=== PATIENT | male | born 1970 | race Caucasian/White ===

== ENCOUNTER 2017-07-27 19:18 | Emergency (ER) | payer BC ==
[2017-07-27 19:32] VITALS: BP 137/92
--- NOTE | 2017-07-27 20:29 | ER Document Report ---
HPI - HPI Patient complains to provider of: right shoulder pain Pain Level: 4 Context: Patient is a 46-year-old male presents emergency department complaining of right shoulder pain that has been chronic for 3 years but worse over the past couple weeks. 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 He states that he has had pain in the back of his skull and his right shoulder along his back. He states it gets worse with certain positions and at the end of the workday. States that he is not taking anything [id number] for it has not followed up with a primary care provider regarding this. Denies any trauma. - REPRODUCTIVE Reproductive: DENIES: : Past Medical History - Social History Smoking Status: Current Every Day Smoker Family History: None Pulmonary Medical History: Reports: Hx Bronchitis, Hx Pneumonia - Immunizations Immunizations up to date: Yes Hx Diphtheria, Pertussis, Tetanus Vaccination: No Vertical Provider Document - CONSTITUTIONAL Agree With Documented VS: Yes Notes: PHYSICAL EXAM GENERAL: Alert, interacts well. EXTREMITIES: Moves all 4 extremities spontaneously. Pain reproducible to palpation of the right shoulder along the right trapezius. Shoulder nontender full range of motion, elbow full range of motion nontender. 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 No cyanosis. NEUROLOGICAL: Alert and oriented x4. Normal speech. PSYCH: Normal affect, normal mood. SKIN: Warm, dry, normal turgor. No rashes or lesions noted. - INFECTION CONTROL TRAVEL OUTSIDE OF THE [place] IN LAST 30 DAYS: No - RESPIRATORY O2 Sat by Pulse Oximetry: 100 Course - Re-evaluation Re-evalutation: 07/27/17 20:29 Patient is a 46-year-old male who is hemodynamically stable, no acute distress and afebrile. Presentation is consistent with overuse muscle irritation of the right trapezius likely due to patient's occupation as well as posture. No evidence of a septic joint, gout flare, dislocation Vitals wnl. At this time, I do not see an indication for labs or further imaging. Will discharge with conservative measures, return precautions, and follow-up recommendations. - Vital Signs Vital signs: Temp Pulse Resp BP Pulse Ox 98.5 F 67 16 137/92 H 100 07/27/17 19:29 07/27/17 19:29 07/27/17 19:29 07/27/17 19:29 07/27/17 19:29 Discharge - Discharge Clinical Impression: Shoulder pain Qualifiers: Chronicity: chronic Laterality: right Qualified Code(s): M25.511 - Pain in right shoulder; G89.29 - Other chronic pain; G89.29 - Other chronic pain Condition: Good Disposition: HOME, SELF-CARE Instructions: Muscle Strain ([facility]), Exercise Program for the Shoulder ([facility]), Use of [id number]-Fmybhlt Ibuprofen ([facility]) Prescriptions: Ibuprofen [Motrin 800 mg Tablet] 800 mg PO Q8H PRN #30 tab PRN Reason: Referrals: KIRSTIE GOMEZ MD [ACTIVE STAFF] - Follow up in 1 week
[2017-07-27] MEDS ORDERED: KETOROLAC TROMETHAMINE INJ/PF 30 MG/1 ML SDV IM ONE (20:35)
== END 2017-07-27 21:04 | disposition home or self-care (01) ==
LOC: ER 19:18
DX: G89.29 Other chronic pain (principal); M25.511 Pain in right shoulder; F17.200 Nicotine dependence, unspecified, uncomplicated
CPT/HCPCS: 99283; 96372; J1885

== ENCOUNTER 2018-05-04 17:19 | Emergency (ER) | payer BC, OTHER ==
[2018-05-04] MEDS ORDERED: ASPIRIN 325 MG TABLET PO ONE (17:45)
--- NOTE | 2018-05-04 17:46 | EKG REPORT ---
SEVERITY:- NORMAL ECG - SINUS RHYTHM : Confirmed by: Geovany Ford MD 04-May-2018 17:45:38
--- NOTE | 2018-05-04 17:49 | ER Document Report ---
ED Medical Screen (RME) - General Chief Complaint: Chest Pain Stated Complaint: CHEST PAIN/SHORT OF BREATH Time Seen by Provider: 05/04/18 17:45 Mode of Arrival: Ambulatory Information source: Patient TRAVEL OUTSIDE OF THE [place] IN LAST 30 DAYS: No - HPI Patient complains to provider of: cp Onset: Yesterday - pt with intermittent sscp since yesterday. Has had some SOB for the past week - Related Data Allergies/Adverse Reactions: No Known Allergies Allergy (Verified 07/27/17 19:32) Past Medical History Pulmonary Medical History: Reports: Hx Bronchitis, Hx Pneumonia Renal/ Medical History: Denies: Hx Peritoneal Dialysis - Immunizations Immunizations up to date: Yes Hx Diphtheria, Pertussis, Tetanus Vaccination: No Physical Exam - Vital signs Vitals: Temp Pulse Resp BP Pulse Ox 98.7 F 85 16 132/87 H 100 05/04/18 17:32 05/04/18 17:32 05/04/18 17:32 05/04/18 17:32 05/04/18 17:32 Course - Vital Signs Vital signs: Temp Pulse Resp BP Pulse Ox 98.7 F 85 16 132/87 H 100 05/04/18 17:32 05/04/18 17:32 05/04/18 17:32 05/04/18 17:32 05/04/18 17:32
[2018-05-04 18:06] LABS: ABSOLUTE EOSINOPHILS # (AUTO) 0.3 10^3/uL (0.0-0.6); ABSOLUTE LYMPHOCYTES (AUTO) 2.8 10^3/uL (0.5-4.7); ABSOLUTE MONOCYTES (AUTO) 0.7 10^3/uL (0.1-1.4); BASOPHILS % (AUTO) 0.4 % (0-2); HEMATOCRIT 47.5 % (37.9-51.0); HEMOGLOBIN 16.1 g/dL (13.5-17.0); LYMPHOCYTES % (AUTO) 31.6 % (13-45); MEAN CORPUSCULAR HEMOGLOBIN 30.6 pg (27.0-33.4); MEAN CORPUSCULAR HGB CONC 33.9 g/dL (32.0-36.0); MEAN CORPUSCULAR VOLUME 90 fl (80-97); MONOCYTES % (AUTO) 8.3 % (3-13); PLATELET COUNT 207 10^3/uL (150-450); RED BLOOD COUNT 5.27 10^6/uL (4.35-5.55); RED CELL DISTRIBUTION WIDTH 14.1 % (11.5-14.0); SEGMENTED NEUTROPHILS % (AUTO) 56.7 % (42-78); TOTAL CELLS COUNTED % (AUTO) 100 %; WHITE BLOOD COUNT 8.9 10^3/uL (4.0-10.5)
[2018-05-04 18:32] LABS: ALANINE AMINOTRANSFERASE 112 U/L (21-72); ALBUMIN 4.4 g/dL (3.5-5.0); ALKALINE PHOSPHATASE 80 U/L (38-126); ANION GAP 12 (5-19); ASPARTATE AMINO TRANSFERASE 71 U/L (17-59); BILIRUBIN,DIRECT 0.4 mg/dL (0.0-0.4); BILIRUBIN,TOTAL 0.5 mg/dL (0.2-1.3); BLOOD UREA NITROGEN 21 mg/dL (7-20); CALCIUM 9.5 mg/dL (8.4-10.2); CARBON DIOXIDE 28 mmol/L (22-30); CHLORIDE 102 mmol/L (98-107); CREATINE KINASE 123 U/L (55-170); GLUCOSE 86 mg/dL (75-110); POTASSIUM 4.7 mmol/L (3.6-5.0); SODIUM 141.9 mmol/L (137-145); TOTAL PROTEIN 7.6 g/dL (6.3-8.2)
[2018-05-04 18:41] LABS: CREATINE KINASE MB 0.57 ng/mL (<4.55)
[2018-05-04 18:44] LABS: TROPONIN I < 0.012 ng/mL
--- NOTE | 2018-05-04 18:49 | RADIOLOGY REPORT (SQ) ---
EXAM DESCRIPTION: CHEST 2 VIEWS COMPLETED DATE/TIME: 05/04/2018 6:36 pm REASON FOR STUDY: Chest pain COMPARISON: 03/18/2018 and earlier EXAM PARAMETERS: NUMBER OF VIEWS: two views TECHNIQUE: Digital Frontal and Lateral radiographic views of the chest acquired. RADIATION DOSE: NA LIMITATIONS: none FINDINGS: LUNGS AND PLEURA: Skin fold over the inferior right hemithorax. No focal consolidation, p leural effusion, or pneumothorax. Chronic blunting of the costophrenic angles per Lungs are hyperluc ent with flattening of the hemidiaphragms. MEDIASTINUM AND HILAR STRUCTURES: No masses or contour abnormalities. HEART AND VASCULAR STRUCTURES: Heart normal size. No evidence for failure. BONES: No acute findings. HARDWARE: None in the chest. OTHER: No other significant finding. IMPRESSION: 1. No acute cardiopulmonary process 2. Sequela of COPD. TECHNICAL DOCUMENTATION: JOB ID: [id number] [employer]- All Rights Reserved Reading location - IP/workstation name: [email or web address]
[2018-05-04] MEDS ORDERED: PREDNISONE 20 MG TABLET PO ONE (19:51)
[2018-05-04] MEDS ORDERED: IPRATROPIUM/ALBUTEROL 0.5-2.5 MG/3 ML AMPUL NEB ONE (19:52)
[2018-05-04] MEDS ORDERED: ALBUTEROL SULFATE HFA (90 MCG/PUFF) 200 PUFF/8.5 GM MDI IH ONE (19:52)
--- NOTE | 2018-05-04 19:58 | ER Document Report ---
ED General - General Chief Complaint: Chest Pain Stated Complaint: CHEST PAIN/SHORT OF BREATH Time Seen by Provider: 05/04/18 17:45 Mode of Arrival: Ambulatory Notes: Patient is a 47-year-old male with a past medical history of COPD, continues to smoke who presents with 3-4 days of coughing, increased shortness of breath and feeling fatigued. Patient states that the symptoms started gradually and have gotten progressively worse since that time. He has not trying to improve his symptoms. He notes that exerting himself or smoking worsens his symptoms. He does not have a general doctor. He denies fever or constitutional symptoms. He does note that he has had a intermittent, stabbing, aching pain to the left side of his lower ribs vertically when he coughs or moves. TRAVEL OUTSIDE OF THE [place] IN LAST 30 DAYS: No - Related Data Allergies/Adverse Reactions: No Known Allergies Allergy (Verified 07/27/17 19:32) Past Medical History - General Information source: Patient - Social History Smoking Status: Current Every Day Smoker Cigarette use (# per day): Yes - 1 pack/day Smoking Education Provided: Yes - Smoking cessation counseling was provided for 4 minutes at the bedside Frequency of alcohol use: Occasional Drug Abuse: None Lives with: Spouse/Significant other Family History: Reviewed & Not Pertinent Patient has suicidal ideation: No Patient has homicidal ideation: No Pulmonary Medical History: Reports: Hx Bronchitis, Hx Pneumonia Renal/ Medical History: Denies: Hx Peritoneal Dialysis - Immunizations Immunizations up to date: Yes Hx Diphtheria, Pertussis, Tetanus Vaccination: No Review of Systems - Review of Systems Notes: Constitutional: Negative for fever. HENT: Negative for sore throat. Eyes: Negative for visual changes. Cardiovascular: Negative for chest pain. Respiratory: Positive for cough and shortness of breath Gastrointestinal: Negative for abdominal pain, vomiting or diarrhea. Genitourinary: Negative for dysuria. Musculoskeletal: Negative for back pain. Skin: Negative for rash. Neurological: Negative for headaches, weakness or numbness. 10 point ROS negative except as marked above and in HPI. Physical Exam - Vital signs Vitals: Temp Pulse Resp BP Pulse Ox 98.7 F 85 16 132/87 H 100 05/04/18 17:32 05/04/18 17:32 05/04/18 17:32 05/04/18 17:32 05/04/18 17:32 Interpretation: Normal Notes: PHYSICAL EXAMINATION: GENERAL: Well-appearing, well-nourished and in no acute distress. HEAD: Atraumatic, normocephalic. EYES: Pupils equal round and reactive to light, extraocular movements intact, sclera anicteric, conjunctiva are normal. ENT: nares patent, oropharynx clear without exudates. Moist mucous membranes. NECK: Normal range of motion, supple without lymphadenopathy LUNGS: Faint expiratory wheezing in all lung prieto. No increased work of breathing or distress. HEART: Regular rate and rhythm without murmurs ABDOMEN: Soft, nontender, normoactive bowel sounds. No guarding, no rebound. No masses appreciated. EXTREMITIES: Normal range of motion, no pitting or edema. No cyanosis. NEUROLOGICAL: No focal neurological deficits. Moves all extremities spontaneously and on command. PSYCH: Normal mood, normal affect. SKIN: Warm, Dry, normal turgor, no rashes or lesions noted. Course - Re-evaluation Re-evalutation: 05/04/18 19:53 Patient presents with a mild exacerbation of their baseline COPD. Mild wheezing at time of presentation but vitals do not show significant hypoxemia or tachypnea. No retractions. Patient did clinically improve after receiving nebulizers here in the emergency department. Chest x-ray without evidence of an acute pneumonia. Laboratories do not show acute kidney injury or significant leukocytosis. Patient able to ambulate without any respiratory distress. Based on patient's overall reassuring assessment, I believe they are stable for outpatient management with steroids. Patient has been provided an albuterol inhaler with a spacer for home. Patient did report some chest discomfort with coughing which appears to be muscular skeletal in origin as it is entirely between the rib spaces on the left side and is reproducible on palpation. Has been ongoing for several days. No indication for serial cardiac markers. I do not suspect an acute alternative pathology at this time based on history and exam including acute pulmonary embolus, ACS, pneumothorax, or aortic dissection. At this time will discharge with return precautions and follow-up recommendations. Verbal discharge instructions given a the bedside and opportunity for questions given. Medication warnings reviewed. Patient is in agreement with this plan and has verbalized understanding of return precautions and the need for primary care follow-up in the next 24-72 hours. - Vital Signs Vital signs: Temp Pulse Resp BP Pulse Ox 97 F L 85 18 116/80 97 05/04/18 21:01 05/04/18 17:32 05/04/18 21:01 05/04/18 21:01 05/04/18 21:01 - Laboratory Result Diagrams: 05/04/18 17:57 05/04/18 17:57 Laboratory results interpreted by me: 05/04/18 05/04/18 17:57 17:57 RDW 14.1 H BUN 21 H AST 71 H ALT 112 H - Diagnostic Test Radiology reviewed: Image reviewed, Reports reviewed Radiology results interpreted by me: 05/04/18 19:54 Chest x-ray: Findings consistent with COPD - EKG Interpretation by Me Additional EKG results interpreted by me: 05/04/18 19:58 Rhythm[address] Rate 56[address] No ST elevations or depressions. QTC is 398. Discharge - Discharge Clinical Impression: COPD exacerbation, Chest discomfort, Persistent cough Condition: Good Disposition: HOME, SELF-CARE Additional Instructions: You were seen for a COPD exacerbation. Your symptoms improved with treatment here in the emergency department. However, it is very important that you return to the emergency department immediately if you began to have worsening difficulty breathing that does not respond to your normal home nebulizers. You are also being sent home on a five-day course of steroids that you should start taking tomorrow. Please also follow closely with your primary care physician. You should return to emergency department if you develop fever greater than 101 , persistent cough, persistent vomiting, pass out, or any other symptoms that are concerning to you. Prescriptions: Prednisone [Deltasone 20 mg Tablet] 2 tab PO DAILY 5 Days tablet
[2018-05-04 21:11] VITALS: BP 116/80
== END 2018-05-04 21:11 | disposition home or self-care (01) ==
LOC: ER 17:19
DX: J44.1 Chronic obstructive pulmonary disease with (acute) exacerbation (principal); R05 Cough; R06.02 Shortness of breath; R53.83 Other fatigue; R07.81 Pleurodynia; F17.210 Nicotine dependence, cigarettes, uncomplicated; Z71.6 Tobacco abuse counseling; Z87.01 Personal history of pneumonia (recurrent)
CPT/HCPCS: 93005; 99406; 94640; 99285; 36415; 82553; 82550; 85025; 80053; 84484; 71046; 93010; J7512; J3490; J7620

== ENCOUNTER 2019-08-11 14:46 | Emergency (ER) | payer OTHER ==
[2019-08-11] MEDS ORDERED: ACETAMINOPHEN 325 MG TABLET PO ONE (16:01)
[2019-08-11] MEDS ORDERED: TETRACAINE HCL 0.5% OPH SOLN 4 ML OS ONE (16:02)
--- NOTE | 2019-08-11 16:04 | ER Document Report ---
ED Medical Screen (RME) - General Chief Complaint: Foreign Body in Eye Stated Complaint: FOREIGN BODY IN EYE LEFT Time Seen by Provider: 08/11/19 15:53 Notes: Patient is a 48-year-old male presents emergency department with a chief complaint of foreign body in his eye. Patient reports around 130 he was cutting steel, states he did have his protective goggles on but that a piece of steel went into his eye. Patient reports he is had a lot of eye redness and irritation with clear tearing since then. Patient reports that he feels like there is something stuck there. Patient reports he attempted to irrigate with a bottle of water. Patient reports blurred vision. TRAVEL OUTSIDE OF THE [place] IN LAST 30 DAYS: No - Related Data Allergies/Adverse Reactions: No Known Allergies Allergy (Verified 08/11/19 15:55) Home Medications: adderall, olanzapine Past Medical History - Social History Chew tobacco use (# tins/day): No Frequency of alcohol use: None Drug Abuse: None Pulmonary Medical History: Reports: Hx Bronchitis, Hx Pneumonia Renal/ Medical History: Denies: Hx Peritoneal Dialysis - Immunizations Immunizations up to date: Yes Hx Diphtheria, Pertussis, Tetanus Vaccination: No Physical Exam - Vital signs Vitals: Temp Pulse Resp BP Pulse Ox 98.0 F 73 16 130/69 H 97 08/11/19 15:37 08/11/19 15:37 08/11/19 15:37 08/11/19 15:37 08/11/19 15:37 - HEENT Head: Normocephalic Eyes: Tears Conjunctiva: Injected Cornea: Other - There is a possible foreign body noted at the 6 o'clock position on the cornea. Extraocular movements intact: Yes Eyelashes: Normal Pupils: PERRL Course - Re-evaluation Re-evalutation: 08/11/19 16:04 Patient require a thorough eye exam once placed in a private room. I have ordered visual acuity, Tylenol, tetracaine in the eye box for the provider in the back. I have greeted and performed a rapid initial assessment of this patient. A comprehensive ED assessment and evaluation of the patient, analysis of test results and completion of the medical decision making process will be conducted by additional ED providers. - Vital Signs Vital signs: Temp Pulse Resp BP Pulse Ox 98.0 F 73 16 130/69 H 97 08/11/19 15:37 08/11/19 15:37 08/11/19 15:37 08/11/19 15:37 08/11/19 15:37
[2019-08-11] MEDS ORDERED: DIPH/PERTUSS(ACELL)/TETANUS VAC/PF 0.5 ML SYR (>=10YO) IM ONE (18:05)
--- NOTE | 2019-08-11 18:05 | ER Document Report ---
ED Foreign Body - General Chief Complaint: Foreign Body in Eye Stated Complaint: FOREIGN BODY IN EYE LEFT Time Seen by Provider: 08/11/19 15:53 Primary Care Provider: LORENA CHANG MD [ACTIVE STAFF] - Follow up tomorrow Notes: Patient is a 48-year-old male who presents to the emergency department with a chief complaint of left eye pain. 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 He was wearing safety glasses. States that he has had this done before and has had the wound care physician take the metal out. Admits to some blurriness. Patient currently takes Adderall. TRAVEL OUTSIDE OF THE [place] IN LAST 30 DAYS: No - Related Data Allergies/Adverse Reactions: No Known Allergies Allergy (Verified 08/11/19 15:55) Home Medications: adderall, olanzapine Past Medical History - Social History Smoking Status: Current Every Day Smoker Chew tobacco use (# tins/day): No Frequency of alcohol use: None Drug Abuse: None Family History: Reviewed & Not Pertinent Patient has suicidal ideation: No Patient has homicidal ideation: No Pulmonary Medical History: Reports: Hx Bronchitis, Hx Pneumonia Renal/ Medical History: Denies: Hx Peritoneal Dialysis - Immunizations Immunizations up to date: Yes Hx Diphtheria, Pertussis, Tetanus Vaccination: No Review of Systems - Review of Systems Notes: REVIEW OF SYSTEMS: CONSTITUTIONAL : Denies recent illness. Denies recent unintentional weight loss. Denies fever, chills, or sweats. EENT: See HPI. CARDIOVASCULAR: Denies chest pain. RESPIRATORY: Denies shortness of breath, cough, congestion, difficulty breathing, or wheezing. GASTROINTESTINAL: Denies nausea, vomiting, and diarrhea. Denies abdominal pain. Denies constipation. GENITOURINARY: Denies difficulty urinating, burning, blood in urine, urgency or frequency. MUSCULOSKELETAL: Denies neck and back pain. Denies joint pain or swelling. SKIN: Denies rash, itchiness, or lesions HEMATOLOGIC : Denies easy bruising or bleeding. LYMPHATIC: Denies swollen, painful, enlarged glands. NEUROLOGICAL: Denies no numbness or tingling denies weakness. Denies headache. Denies altered mental status. Denies alteration in speech. PSYCHIATRIC: Denies stress, anxiety, alteration in sleep patterns, or depression. All other systems reviewed and negative. Physical Exam - Vital signs Vitals: Temp Pulse Resp BP Pulse Ox 98.0 F 73 16 130/69 H 97 08/11/19 15:37 08/11/19 15:37 08/11/19 15:37 08/11/19 15:37 08/11/19 15:37 - Notes Notes: PHYSICAL EXAMINATION: GENERAL: Appears well, healthy, well-nourished, no acute distress. HEAD: Normocephalic, atraumatic. EYES: PERRLA, erythematous sclera. Metal foreign body noted in left eye. Right eye clear. ENT: Moist mucous membranes. NECK: Supple, no noticeable swelling, redness, rash. Normal range of motion. LUNGS: Equal breath sounds bilaterally and clear to auscultation. No wheezes rales or rhonchi. CARDIOVASCULAR: S1-S2, regular rate, regular rhythm. Radial pulses 2+, normal. ABDOMEN: Normoactive bowel sounds. Soft, nontender, no guarding, no rebound tenderness, and no masses palpated. EXTREMITIES: Normal strength and range of motion, no pitting or edema. No cyanosis. NEUROLOGICAL: Moves all extremities upon command. Strength 5/5 in all extremities. PSYCH: Normal mood, normal affect. SKIN: Warm, dry. No rash, lesions, ulcerations noted. Normal skin turgor. - HEENT Visual acuity- Right eye: 20/50 Visual acuity- Left eye: 20/50 Visual acuity- Both eyes: 20/40 Corrective lenses worn: No Course - Re-evaluation Re-evalutation: 08/11/19 18:17 The piece of metal was identified. No other pieces of metal were identified on eye exam. The piece of metal was removed by myself. Patient will be placed on Polytrim eyedrops. He is also being updated on his tetanus vaccine here in the emergency department. Negative Izabel sign noted. Pupils equal, round, and reactive to light. I have a very low suspicion for globe rupture. Follow-up precautions were given. Verbal discharge instructions were given to the patient. They verbalized understanding. They are stable for discharge. - Vital Signs Vital signs: Temp Pulse Resp BP Pulse Ox 98.0 F 73 16 130/69 H 97 18/20 15:37 08/11/19 15:37 08/11/19 15:37 08/11/19 15:37 02/18/20 15:37 Discharge - Discharge Clinical Impression: Foreign body in eye Qualifiers: Encounter type: initial encounter Laterality: left Qualified Code(s): T15.92XA - Foreign body on external eye, part unspecified, left eye, initial encounter Condition: Stable Disposition: HOME, SELF-CARE Instructions: Tetanus Immunization Given ([facility]) Additional Instructions: You were seen today in the emergency department for a piece of metal in your left eye. The metal was removed here in the emergency department. You are being placed on antibiotic eyedrops. Place 1 drop to your left eye 4 times a day for 7 days. Please follow-up with ophthalmology in regards to this visit. Referrals: LORENA CHANG MD [ACTIVE STAFF] - Follow up tomorrow
[2019-08-11] MEDS ORDERED: POLYMYXIN B SULFATE/TMP OPH SOLN (10 ML/ER DISP) OS ONE (18:18)
[2019-08-11 18:23] VITALS: BP 138/80
== END 2019-08-11 18:34 | disposition home or self-care (01) ==
LOC: ER 14:46
DX: T15.92XA Foreign body on external eye, part unspecified, left eye, initial encounter (principal); H57.12 Ocular pain, left eye; F17.200 Nicotine dependence, unspecified, uncomplicated; X58.XXXA Exposure to other specified factors, initial encounter; Z23 Encounter for immunization
CPT/HCPCS: 65205; J3490 ×2; 99283